=== PATIENT | female | born 2000 | race Caucasian/White ===

== ENCOUNTER 2023-04-22 16:25 | Observation (INO) | payer BC ==
[2023-04-22] MEDS ORDERED: Ondansetron PF 4 MG/2 ML Vial IVP PRN (18:06)
[2023-04-22] MEDS ORDERED: Ondansetron ODT 4 MG TAB PO PRN (18:06)
[2023-04-22] MEDS ORDERED: HYDROcodone/Acetaminophen 5/325 mg Tablet PO PRN (18:06)
[2023-04-22] MEDS ORDERED: cefTRIAXone\\ROCEPHIN 1 GM in Sodium Chloride 0.9% 100 ML IVPB SCH (19:00)
[2023-04-22 19:43] LABS: Syphilis Antibody Nonreactive (Nonreactive); Syphilis Antibody Index 0.18 S/CO (<1.00 Non-Reactive)
[2023-04-22 19:45] LABS: HBSAg Index 0.35 S/CO (0-0.99); HIV (1/2) Antibody/Antigen Non-Reactive (NonReactive); HIV 1/2 INDEX 0.63 S/CO (<1.00); Hep B Surf Ag - L&D Non-Reactive S/CO (NonReactive)
[2023-04-22] MEDS ORDERED: metroNIDAZOLE 500 MG in Premix Bag 1 BAG IVPB SCH (21:00)
[2023-04-22] MEDS ORDERED: metroNIDAZOLE 500 MG in Syringe 0 ML IVPB SCH (21:00)
[2023-04-22] MEDS: Doxycycline 100 MG in Sodium Chloride 0.9% 100 ML IVPB SCH (21:10)
[2023-04-23 01:32] LABS: Chlamydia by PCR, EndoCx Swab DETECTED (NotDetected); GC by PCR, EndoCx Swab DETECTED (NotDetected)
[2023-04-23 03:28] LABS: #Basophils 0.1 10x3/uL (0.0-0.2); #Eosinphils 0.1 10x3/uL (0.0-0.5); #Monocytes 1.1 10x3/uL (0.0-1.1); #Neutrophils 12.1 10x3/uL (1.5-8.4); %Basophils 0.4 % (0.0-2.0); %Eosinophils 0.3 % (0.0-6.0); %Lymphocytes 13.7 % (18.0-47.0); %Monocytes 6.9 % (0.0-10.0); %Neutrophils 77.9 % (40.0-75.0); Hemoglobin 11.1 g/dL (12.0-15.5); Mean Corpuscular HGB CONC 33.4 g/dL (32.0-36.0); Mean Corpuscular Hemoglobin 29.2 pg (27.0-33.0); Mean Corpuscular Volume 87.4 fl (81.6-98.3); Platelet Count 338 10x3/uL (150-450); RBC Distribution Width 12.9 % (11.5-14.5); White Blood Cell (WBC) Count 15.6 10x3/uL (3.5-10.5)
[2023-04-23 03:39] LABS: ALT (SGPT) 18 U/L (8-55); AST (SGOT) 16 U/L (5-34); Albumin 3.3 g/dL (3.5-5.0); Alkaline Phosphatase 67 U/L (40-110); Anion Gap 15 mmol/L (10-20); BUN (Urea Nitrogen) 9 mg/dL (7.0-18.7); Bilirubin, Total 0.2 mg/dL (0.2-1.2); Calc. Creatinine Clearance 127 mL/min (70-130); Calcium 8.8 mg/dL (7.8-10.44); Carbon Dioxide 20 mmol/L (22-29); Chloride 107 mmol/L (98-107); Estimated GFR 128; Globulin 4.6 g/dL (2.4-3.5); Glucose 92 mg/dL (70-105); Potassium 3.5 mmol/L (3.5-5.1); Protein, Total 7.9 g/dL (6.0-8.3); Sodium 138 mmol/L (136-145)
[2023-04-23] MEDS: metroNIDAZOLE 500 MG in Premix Bag 1 BAG IVPB SCH ×2 (04:23→15:52)
[2023-04-23] MEDS ORDERED: Potassium Chloride 20 MEQ TAB PO SCH (08:00)
[2023-04-23] MEDS: Acetaminophen 325 MG TAB PO PRN ×2 (08:31→23:47)
[2023-04-23] MEDS: Doxycycline 100 MG in Sodium Chloride 0.9% 100 ML IVPB SCH ×2 (08:32→21:20)
[2023-04-23] MEDS: Sodium Chloride 0.9% 1,000 ML IV SCH ×2 (08:35→16:25)
[2023-04-23] MEDS ORDERED: cefTRIAXone\\ROCEPHIN 1 GM in Sodium Chloride 0.9% 100 ML IVPB SCH (15:00)
[2023-04-24] MEDS: metroNIDAZOLE 500 MG in Premix Bag 1 BAG IVPB SCH (03:58)
[2023-04-24] MEDS: Sodium Chloride 0.9% 1,000 ML IV SCH (07:29)
[2023-04-24 07:35] VITALS: BP 106/59; TEMP 97.7
[2023-04-24] MEDS ORDERED: metroNIDAZOLE 500 MG TAB PO SCH (09:00)
[2023-04-24] MEDS ORDERED: Doxycycline 100 MG CAP PO SCH (09:00)
[2023-04-24] MEDS ORDERED: Fluconazole 100 MG TAB PO SCH (09:00)
== END 2023-04-24 09:35 | disposition home or self-care (01) ==
LOC: INTOOBSV 16:25 → CSHPP 16:25 → CSHPED 04-23 11:19
PROVIDERS: ADMIT Obstetrics & Gynecology; ATTEND Obstetrics & Gynecology
DX: N73.9 Female pelvic inflammatory disease, unspecified (principal); N85.8 Other specified noninflammatory disorders of uterus; N70.93 Salpingitis and oophoritis, unspecified; Z79.899 Other long term (current) drug therapy
CPT/HCPCS: 36415; 76856; 80053; 85025; 86140; 86780; 87340; 87389; 87480; 87491; 87510; 87591; 87660; 96365; 96366; 96367; G0378; J0696; J3490; J7050; Q0162